=== PATIENT | female | born 1990 | race Caucasian/White ===

== ENCOUNTER 2017-11-13 18:00 | Emergency (ER) | payer BC ==
[~2017-11-13] VITALS: Ht 160 cm; Wt 61.2 kg
[2017-11-13] MEDS ORDERED: FLEXERIL PO (20:40)
[2017-11-13] MEDS ORDERED: NAPROSYN500 MG PO (20:40)
[2017-11-13 20:54] VITALS: BP 118/75
== END 2017-11-13 20:55 | disposition home or self-care (01) ==
LOC: M.ERS 18:00
DX: S16.1XXA Strain of muscle, fascia and tendon at neck level, initial encounter (principal); S29.012A Strain of muscle and tendon of back wall of thorax, initial encounter; J45.909 Unspecified asthma, uncomplicated; V89.2XXA Person injured in unspecified motor-vehicle accident, traffic, initial encounter; Y93.89 Activity, other specified; Y92.89 Other specified places as the place of occurrence of the external cause; Y99.8 Other external cause status

== ENCOUNTER 2019-03-19 17:57 | Emergency (ER) | payer BC ==
[~2019-03-19] VITALS: Ht 160 cm; Wt 67.1 kg
[~2019-03-19 17:57] MED LIST: FLEXERIL PO; NAPROSYN500 MG PO
[2019-03-19 19:18] VITALS: BP 128/47
== END 2019-03-19 19:20 | disposition home or self-care (01) ==
LOC: M.ERS 17:57
DX: S06.0X0A Concussion without loss of consciousness, initial encounter (principal); J45.909 Unspecified asthma, uncomplicated; W18.39XA Other fall on same level, initial encounter; Y93.89 Activity, other specified; Y92.89 Other specified places as the place of occurrence of the external cause; Y99.8 Other external cause status